=== PATIENT | male | born 1965 | race American Indian/Alaskan Native ===

== ENCOUNTER 2019-05-23 00:54 | Emergency (ER) | payer MEDICAID ==
[2019-05-23] MEDS ORDERED: IBUPROFEN 800 MG TAB PO ONE (06:28)
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
[2019-05-23 08:03] VITALS: BP 127/64
== END 2019-05-23 08:03 | disposition home or self-care (01) ==
LOC: ED 00:54
DX: M79.18 Myalgia, other site (principal); I10 Essential (primary) hypertension; Z98.890 Other specified postprocedural states; Z79.899 Other long term (current) drug therapy

== ENCOUNTER 2021-12-02 22:51 | Emergency (ER) | payer MEDICAID ==
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
--- NOTE | 2021-12-03 00:21 | XRay Report ---
CHEST 1 VIEW 12/02/2021 11:10 PM INDICATION / CLINICAL INFORMATION: altered mental status. COMPARISON: None available. FINDINGS: SUPPORT DEVICES: None. HEART / MEDIASTINUM: The cardiac silhouette is moderately enlarged. LUNGS / PLEURA: There are generalized bilateral interstitial opacities. No significant pleural effusi on. No pneumothorax. ADDITIONAL FINDINGS: No significant additional findings. IMPRESSION: Moderate cardiomegaly with suspected pulmonary edema. Signer Name: Mahamed Larsen MD Signed: 12/03/2021 12:16 AM Workstation Name: [id number]
[2021-12-03 00:34] LABS: Alanine Aminotransferase 29 units/L (7-56); Albumin 4.1 g/dL (3.9-5); BUN/Creatinine Ratio 16; Blood Urea Nitrogen 18 mg/dL (9-20); Calcium 8.9 mg/dL (8.4-10.2); Hemolysis Index 3
[2021-12-03 00:37] LABS: Bilirubin,Direct < 0.2 mg/dL (0-0.2)
[2021-12-03] MEDS ORDERED: SODIUM CHLORIDE 0.9% 1000 ML 1,000 ML IV ONE (00:40)
--- NOTE | 2021-12-03 00:42 | Cat Scan Report ---
CT HEAD WITHOUT CONTRAST INDICATION / CLINICAL INFORMATION: altered mental status. TECHNIQUE: All CT scans at this location are performed using CT dose reduction for ALARA by means of automated e xposure control. COMPARISON: None available. FINDINGS: HEMORRHAGE: No evidence of intracranial hemorrhage or extra-axial fluid collection. EXTRA-AXIAL SPACES: Cortical sulci, sylvian fissures and basilar cisterns have an unremarkable appear ance. VENTRICULAR SYSTEM: The third and lateral ventricles are of normal size and configuration. CEREBRAL PARENCHYMA: No areas of abnormal brain parenchymal attenuation are identified. There is no i ndication of recent infarction. MIDLINE SHIFT OR HERNIATION: There is no mass effect. CEREBELLUM / BRAINSTEM: Brainstem and cerebellum have an unremarkable appearance. MIDLINE STRUCTURES:No abnormalities of the pituitary gland or pineal region are identified. INTRACRANIAL VESSELS:No abnormalities are identified on this noncontrast head CT. ORBITS: visualized portions of the orbits have an unremarkable appearance. SOFT TISSUES of HEAD: No significant abnormality. CALVARIUM: Evaluation of bone windows reveals no abnormalities. PARANASAL SINUSES / MASTOID AIR CELLS: Visualized portions of the paranasal sinuses are free from inf lammatory mucosal disease. Mastoid air cells are normally pneumatized. IMPRESSION: 1. No acute intracranial abnormality on CT head without contrast.. Signer Name: Elijah Thompson MD Signed: 12/03/2021 12:38 AM Workstation Name: [id number]
[2021-12-03 00:43] LABS: Basophils % (Auto) 0.5 % (0.0-1.8); Eosinophils # (Auto) 0.1 K/mm3 (0.0-0.4); Eosinophils % (Auto) 1.5 % (0.0-4.3); Hematocrit 30.8 % (35.5-45.6); Hemoglobin 10.2 gm/dl (11.8-15.2); Lymphocytes # (Auto) 1.6 K/mm3 (1.2-5.4); Lymphocytes % (Auto) 17.9 % (13.4-35.0); Mean Corpuscular HGB Conc 33 % (32-34); Mean Corpuscular Volume 91 fl (84-94); Monocytes # (Auto) 0.6 K/mm3 (0.0-0.8); Monocytes % (Auto) 6.5 % (0.0-7.3); Platelet Count 184 K/mm3 (140-440); Red Blood Count 3.37 M/mm3 (3.65-5.03); Red Cell Distribution Width 16.5 % (13.2-15.2)
[2021-12-03 03:43] VITALS: BP 149/91
--- NOTE | 2021-12-03 18:43 | Electrocardiograph Report ---
[facility] Test Date: 2021-12-03 Test Time: 00:29:29 Pat Name: CORI NAIK Department: Room: Gender: M [employer] Operator: SILVANO : 1965 Requested By: ISMAEL PARSON Order Number: [id number] Reading MD: Talib Pathak Measurements Intervals [place] Rate: 64 P: 38 NE: 168 QRS: 46 QRSD: 101 T: 50 QT: 464 QTc: 478 Interpretive Statements Sinus rhythm Probable left ventricular hypertrophy No previous ECG available for comparison Electronically Signed On 12-03-2021 18:43:30 EDT by Talib Pathak
== END 2021-12-03 03:15 | disposition home or self-care (01) ==
LOC: ED 22:51
DX: R40.4 Transient alteration of awareness (principal); F10.20 Alcohol dependence, uncomplicated; I10 Essential (primary) hypertension
CPT/HCPCS: 36415; 70450; 71045; 80048; 80076; 85025; 93005; 96360; 99285; J7030; 80320; G0480

== ENCOUNTER 2021-12-26 01:49 | Observation (INO) | payer MEDICAID ==
[2021-12-26] MEDS ORDERED: NALOXONE 0.4 MG/1 ML INJ IV PRN (02:01)
[2021-12-26] MEDS ORDERED: ONDANSETRON 4 MG/2 ML INJ IV ONE (02:01)
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
--- NOTE | 2021-12-26 02:23 | XRay Report ---
Chest single view INDICATION: Dyspnea IMPRESSION: Severe cardiomegaly with mild bilateral interstitial edema. Signer Name: Adalberto Alegria MD Signed: 12/26/2021 2:19 AM Workstation Name: [facility]
[2021-12-26 02:44] LABS: Basophils # (Auto) 0.1 K/mm3 (0.0-0.1); Basophils % (Auto) 0.5 % (0.0-1.8); Eosinophils # (Auto) 0.1 K/mm3 (0.0-0.4); Eosinophils % (Auto) 1.2 % (0.0-4.3); Hematocrit 33.7 % (35.5-45.6); Hemoglobin 11.1 gm/dl (11.8-15.2); Lymphocytes # (Auto) 1.6 K/mm3 (1.2-5.4); Lymphocytes % (Auto) 15.1 % (13.4-35.0); Mean Corpuscular HGB Conc 33 % (32-34); Mean Corpuscular Volume 91 fl (84-94); Monocytes # (Auto) 0.7 K/mm3 (0.0-0.8); Monocytes % (Auto) 6.4 % (0.0-7.3); Platelet Count 234 K/mm3 (140-440); Red Cell Distribution Width 17.3 % (13.2-15.2)
[2021-12-26 02:56] LABS: INR 1.02 (0.87-1.13); Partial Thromboplastin Time 27.5 Sec. (24.2-36.6)
[2021-12-26 03:04] LABS: Alanine Aminotransferase 19 units/L (7-56); Albumin 4.2 g/dL (3.9-5); BUN/Creatinine Ratio 13; Blood Urea Nitrogen 17 mg/dL (9-20); Calcium 9.4 mg/dL (8.4-10.2); Hemolysis Index 8
--- NOTE | 2021-12-26 03:21 | Cat Scan Report ---
CT head without contrast INDICATION : Altered mental status TECHNIQUE: Axial imaging performed from the skull apex through the skull base without the use of con trast. All CT examinations performed at this facility utilize dose modulation, iterative reconstruct ion or weight-based dosing, when appropriate, to reduce radiation dose to as low as reasonably achiev able. Exam is slightly limited secondary to motion artifact COMPARISON: 12/02/2021 FINDINGS: No acute intracranial hemorrhage or parenchymal abnormality. Ventricles are normal in si ze and appear symmetric. Soft tissues including the orbits appear normal. No acute osseous abnorm ality. Sinuses and mastoid air cells are clear. IMPRESSION: No acute abnormality. Signer Name: Adalberto Alegria MD Signed: 12/26/2021 3:18 AM Workstation Name: [email or web address]
--- NOTE | 2021-12-26 03:23 | Cat Scan Report ---
CT cervical spine without contrast INDICATION: Altered mental status and fall after heroin. Neck pain TECHNIQUE: Axial imaging performed through the without the use of contrast. Sagittal and coronal re constructed images were also reviewed. All CT scans at this location are performed using CT dose red uction for ALARA by means of automated exposure control. COMPARISON: None FINDINGS: Alignment: Spinal alignment is normal. Bones: There is no acute osseous abnormality. Mild multilevel discogenic DJD is present. Soft tissues: No acute or significant incidental soft tissue abnormality. Moderate atherosclerotic d isease of the carotid bulbs IMPRESSION: No acute abnormality. Signer Name: Adalberto Alegria MD Signed: 12/26/2021 3:20 AM Workstation Name: [email or web address]
[2021-12-26] MEDS ORDERED: ACETAMINOPHEN 325 MG TAB PO PRN ×2 (03:31→03:49)
[2021-12-26] MEDS ORDERED: ONDANSETRON 4 MG/2 ML INJ IV PRN ×2 (03:31→03:49)
[2021-12-26] MEDS ORDERED: HYDROmorphone 0.5 MG/0.5 ML INJ IV PRN ×2 (03:49)
[2021-12-26] MEDS ORDERED: ALBUTEROL 2.5 MG/3 ML NEBU IH PRN (03:49)
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
[2021-12-26] MEDS ORDERED: THIAMINE 100 MG, FOLIC ACID 1 MG, MULTIPLE VITAMIN INJ, ADULT 10 ML in SODIUM CHLORIDE ... IV ONE (03:58)
[2021-12-26] MEDS ORDERED: IPRATROPIUM/ALBUTEROL SULFATE 3 ML AMPUL.NEB IH SCH (08:00)
[2021-12-26] MEDS ORDERED: FUROSEMIDE 40 MG/4 ML INJ IV SCH (08:22)
--- NOTE | 2021-12-26 09:21 | Electrocardiograph Report ---
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
[2021-12-26] MEDS ORDERED: FAMOTIDINE 20 MG TAB PO SCH (10:00)
--- NOTE | 2021-12-26 12:17 | Discharge Summary ---
Providers - Providers Date of Admission: 12/26/21 03:31 Date of discharge: 12/26/21 Attending physician: MAUREEN ARIZMENDI MD Primary care physician: SUSAN CLAROS Hospitalization Reason for admission: Opioid intoxication Condition: Fair Pertinent studies: Reviewed. Procedures: None. Hospital course: Patient is a 56-year-old male past medical history of congestive heart failure, morbid obesity, hypertension, and polysubstance dependence (heroin and opioids) who was brought to the hospital via EMS after being found unresponsive facedown by family members. With EMS, the family reported the patient's recent use of heroin. EMS administered Narcan 4 mg IV. The patient became responsive, and he to endorsed heroin usage. In the ED, the patient was found to be hemodynamically stable and requiring 2-3 L nasal cannula. The patient continued to remain impaired and intoxicated, and the patient was admitted for further management. The patient has since returned to his baseline. He initially denied polysubstance abuse; however, he has since admitted to using it recreationally. Patient was counseled at length about the importance of cessation of illicit substances. The patient has been weaned to room air. The patient is medically clear for discharge. Disposition: 01 HOME / SELF CARE / HOMELESS Final Discharge Diagnosis (Prints w/discharge instructions): Opioid intoxication, closed head injury, morbid obesity, alcohol dependence, congestive heart failure Time spent for discharge: 45 min Core Measure Documentation - Palliative Care Palliative Care/ Comfort Measures: Not Applicable - Core Measures Any of the following diagnoses?: history only Exam - Constitutional Vitals: Temp Pulse Resp BP Pulse Ox 97.9 F 66 18 118/65 98 12/26/21 07:38 12/26/21 12:00 12/26/21 07:38 12/26/21 07:38 12/26/21 12:00 General appearance: Present: no acute distress, well-nourished, obese - EENT Eyes: Present: PERRL, EOM intact ENT: hearing intact, clear oral mucosa, dentition normal - Neck Neck: Present: supple, normal ROM - Respiratory Respiratory effort: normal Respiratory: bilateral: CTA - Cardiovascular Rhythm: regular Heart Sounds: Present: S1 & S2 - Extremities Extremities: no ischemia, pulses intact, pulses symmetrical, No edema, normal temperature, normal color, Full ROM Peripheral Pulses: within normal limits - Abdominal General gastrointestinal: Present: soft, non-tender, non-distended, normal bowel sounds Male genitourinary: Present: deferred - Rectal Rectal Exam: deferred - Integumentary Integumentary: Present: clear, warm, dry - Musculoskeletal Musculoskeletal: strength equal bilaterally - Psychiatric Psychiatric: appropriate mood/affect, memory intact, cooperative - Neurologic Neurologic: CNII-XII intact, moves all extremities - Allied Health Allied health notes reviewed: nursing Plan Activity: advance as tolerated Diet: low salt Special Instructions: restrict fluid intake to (2 L/day) Additional Instructions: Patient is a 56-year-old male past medical history of congestive heart failure, morbid obesity, hypertension, and polysubstance dependence (heroin and opioids) who was brought to the hospital via EMS after being found unresponsive facedown by family members. With EMS, the family reported the patient's recent use of heroin. EMS administered Narcan 4 mg IV. The patient became responsive, and he to endorsed heroin usage. In the ED, the patient was found to be hemodynamically stable and requiring 2-3 L nasal can nula. The patient continued to remain impaired and intoxicated, and the patient was admitted for further management. The patient has since returned to his baseline. He initially denied polysubstance abuse; however, he has since admitted to using it recreationally. Patient was counseled at length about the importance of cessation of illicit substances. The patient has been weaned to room air. The patient is medically clear for discharge. Care Plan Goals: Patient is medically clear for discharge. Assessment: Patient is a 56-year-old male past medical history of congestive heart failure, morbid obesity, hypertension, and polysubstance dependence (heroin and opioids) who was brought to the hospital via EMS after being found unresponsive facedown by family members. With EMS, the family reported the patient's recent use of heroin. EMS administered Narcan 4 mg IV. The patient became responsive, and he to endorsed heroin usage. In the ED, the patient was found to be hemodynamically stable and requiring 2-3 L nasal cannula. The patient continued to remain impaired and intoxicated, and the patient was admitted for further management. The patient has since returned to his baseline. He initially denied polysubstance abuse; however, he has since admitted to using it recreationally. Patient was counseled at length about the importance of cessation of illicit substances. The patient has been weaned to room air. The patient is medically clear for discharge. Follow up with: SUSAN CLAROS MD [Primary Care Provider] - 7 Days
[2021-12-26 12:20] VITALS: BP 113/69
== END 2021-12-26 14:56 | disposition home or self-care (01) ==
LOC: ED 01:49 → 3A 03:31 → 4A 04:12
PROVIDERS: ADMIT Hospitalist; ATTEND Hospitalist
DX: F11.129 Opioid abuse with intoxication, unspecified (principal); S09.90XA Unspecified injury of head, initial encounter; I10 Essential (primary) hypertension; J81.1 Chronic pulmonary edema; E66.9 Obesity, unspecified; F10.129 Alcohol abuse with intoxication, unspecified; R01.1 Cardiac murmur, unspecified; Z79.899 Other long term (current) drug therapy; Z68.38 Body mass index [BMI] 38.0-38.9, adult; Z98.890 Other specified postprocedural states; X58.XXXA Exposure to other specified factors, initial encounter; Y92.89 Other specified places as the place of occurrence of the external cause; Y93.89 Activity, other specified; Y99.8 Other external cause status
CPT/HCPCS: 36415; 70450; 71045; 72125; 80053; 82140; 83880; 84443; 84484; 85025; 85610; 85730; 93005; 94760; 96365; 96366; 96375; 99285; C8929; G0378; J1940; J3411; J3490; J7030; 80320; 93306; G0480

== ENCOUNTER 2022-01-01 16:33 | Emergency (ER) | payer MEDICAID ==
[2022-01-01 17:02] VITALS: BP 148/94
[2022-01-01] MEDS ORDERED: IBUPROFEN 600 MG TAB PO ONE (20:48)
[2022-01-01] MEDS ORDERED: ACETAMINOPHEN 500 MG TAB PO ONE (20:48)
[2022-01-01] MEDS ORDERED: CLINDAMYCIN 300 MG CAP PO ONE (20:48)
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
== END 2022-01-01 23:00 | disposition home or self-care (01) ==
LOC: ED 16:33
DX: K04.7 Periapical abscess without sinus (principal); K05.00 Acute gingivitis, plaque induced; F41.9 Anxiety disorder, unspecified; F12.10 Cannabis abuse, uncomplicated; F17.200 Nicotine dependence, unspecified, uncomplicated; I10 Essential (primary) hypertension
CPT/HCPCS: 99283